=== PATIENT | female | born 1975 | race Caucasian/White ===

== ENCOUNTER → 2021-01-31 10:17 | Outpatient (CLI) | payer OTHER, SELFPAY ==
[2021-01-06 08:12] VITALS: BMI 30.2
[2021-01-31 12:43] LABS: Glucose 153 mg/dL (74-106)
[2021-01-31 12:44] LABS: Insulin 21.9 mU/L (2.6-37.6)
== END ==
PROVIDERS: PCP Nurse Practitioner Family; Visit Provider Internal Medicine Endocrinology, Diabetes & Metabolism
DX: E11.65 Type 2 diabetes mellitus with hyperglycemia (principal)
CPT/HCPCS: 36415; 82947; 83525; 84681